=== PATIENT | female | born 1995 | race Hispanic/Latino ===

== ENCOUNTER → 2023-04-16 14:45 | Outpatient (CLI) | payer OTHER, SELFPAY ==
[2023-04-16 15:27] LABS: Add Manual Diff / Slide Review NO; Basophils Absolute Auto 0 /uL (0-100); Basophils Percent Auto 0.2 % (0-2); Eosinophils Absolute Auto 100 /uL (0-450); Eosinophils Percent Auto 0.6 % (2-4); Hematocrit 37.3 % (36-46); Hemoglobin 12.8 g/dL (12.0-16.0); Lymphocytes Absolute Auto 1900 /uL (1100-4500); Mean Corpuscular HGB Conc 34.2 % (30-36); Mean Corpuscular Hemoglobin 30.7 PG (26-34); Monocytes Absolute Auto 500 /uL (0-900); Monocytes Percent Auto 5.1 % (3-14); Neutrophils Absolute Auto 7400 /uL (1500-7000); Neutrophils Percent Auto 75.1 % (50-75); Platelet Count 315 X10^3/uL (150-400); Red Blood Cell Count 4.15 X10^6/uL (4.0-5.2); Red Cell Distribution Width 13.7 % (11.6-14.8); White Blood Cell Count 9.8 X10^3/uL (4.5-11.0)
[2023-04-17 07:44] LABS: RPR Screen Non Reactive (Non Reactive)
[2023-04-17 12:49] LABS: Varicella IgG Antibody 250 index (Immune >165)
[2023-04-17 17:33] LABS: HIV 1 & 2 Ab/Ag 4th Gen Combo NEGATIVE (NEGATIVE); Hep C Virus Ab w/Reflex Quant NEGATIVE s/c (NEGATIVE); Hepatitis B Surface Antigen NEGATIVE s/c (NEGATIVE); Rubella Antibody IgG 7.6 IU/mL (>15)
[2023-04-19 13:43] LABS: AFP, Serum 56.6 ng/mL (.); Estriol, Free 1.57 ng/mL (.); Inhibin A, Dimeric 192.34 pg/mL (.); Maternal Ethnicity Other (.); Maternal Weight 156 lbs (.); Number of Fetuses No (.); OSBR Risk 1 IN 2270 (.); Results Report (.); Test Results *Screen Negative* (.); hCG, MoM 0.99 (.); hCG, Serum 35436 mIU/mL (.)
== END ==
PROVIDERS: Specialist; Referring Provider Obstetrics & Gynecology; Visit Provider Obstetrics & Gynecology
DX: Z34.01 Encounter for supervision of normal first pregnancy, first trimester (principal); Z34.02 Encounter for supervision of normal first pregnancy, second trimester; Z3A.16 16 weeks gestation of pregnancy
CPT/HCPCS: 36415; 80055; 82105; 82677; 84702; 86336; 86787; 86803; 86850; 86900; 86901; 87086; 87389

== ENCOUNTER → 2023-05-07 15:12 | Outpatient (CLI) | payer OTHER, SELFPAY ==
--- NOTE | 2023-05-07 15:13 | DI.US.S_ITS ---
PROCEDURE: US OB >= 14 WEEKS FETUS INDICATIONS: 20 Week Anatomy Scan OUTSIDE/PRIOR DATING DATA: Last menstrual period (LMP): 12/20/2022. LMP-based estimated date of delivery (EVAN): 09/26/2023. First dating scan (date and location): 03/12/2023. Estimated date of delivery (EVAN) from first dating scan: 09/22/2023. The calculations are made using the working EVAN of 09/26/2023. TECHNIQUE: Real-time scanning was performed of the fetus, with image documentation and biometric measurements. Endovaginal scanning: Not performed COMPARISON: [facility], , OB >= 14 WEEKS FETUS, 03/12/2023, 15:04. FINDINGS: General: A single living intrauterine gestation is present. Presentation: Vertex. Placenta: Placental position is anterior , without previa. Amniotic fluid index: 13 cm, normal range is 5-24 cm. Single deepest vertical pocket is 3.6 cm. heart rate: 162 beats per minute. Maternal cervical canal: 3.7 cm long. Normal lower limit is 2.5 cm. biometrics: Biparietal diameter: 4.5 cm, 19 weeks 4 days Head circumference: 17.6 cm, 20 weeks 1 day Abdominal circumference: 15.1 cm, 20 weeks 3 days Femur length: 3.2 cm, 19 weeks 6 days Clinically estimated gestational age: 19 weeks 5 days Composite gestational age from present scan: 20 weeks 0 days Estimated weight and percentile: 331 g, 67th percentile Anatomic survey: Neuro: Ventricles are non-dilated at less than 10 mm. Cisterna magna is normal at 3-11 mm. Cerebellum is normal in size and morphology. Nuchal skin fold: Normal at less than 6 mm between 14-21 weeks gestational age. Face: Nose and lips, facial profile are normal. Spine: No evidence for spina bifida. Heart: 4-chambered heart is present, with normal ventricular outflow tracts. Diaphragm: Diaphragm is intact. Stomach: Left-sided stomach is present. Kidneys: No hydronephrosis. Normal is less than 5 mm in 2nd trimester, less than 7 mm in 3rd trimester. Cord: 3-vessel cord has orthotopic insertion. Bladder: Normal in size. Extremities: All 4 extremities identified. IMPRESSION: 1. Living 2nd trimester intrauterine with no sonographic evidence of complications. Current ultrasound age correlates with clinical age based on LMP. 2. Normal 2nd trimester anatomy study. We strive to produce accurate, complete, and clear reports of imaging services. To assist us in improving patient care, this report was composed using standard report templates and voice recognition software. Therefore, it may contain abnormal punctuation, insertions and/or omissions. Occasional wrong-word or sound-alike substitutions may occur. Though we review the report and make efforts to correct it, we do recommend that the report be read carefully in proper context to recognize any text inaccuracies. Dictated by: Vikash Obando M.D. on 05/07/2023 at 17:07 Approved by: Vikash Obando M.D. on 05/07/2023 at 17:10
== END ==
PROVIDERS: Referring Provider Obstetrics & Gynecology; Visit Provider Obstetrics & Gynecology
DX: Z34.02 Encounter for supervision of normal first pregnancy, second trimester (principal); Z3A.20 20 weeks gestation of pregnancy
CPT/HCPCS: 76811

== ENCOUNTER → 2023-06-19 11:23 | Outpatient (CLI) | payer OTHER, SELFPAY ==
[2023-06-19 12:30] LABS: Hematocrit 37.3 % (36-46); Hemoglobin 12.7 g/dL (12.0-16.0)
[2023-06-19 12:58] LABS: GTT (PREG) 1 Hour PP 50gm Dose 175 mg/dL (76-139)
== END ==
LOC: LAB 11:24
PROVIDERS: Referring Provider Specialist; Visit Provider Specialist
DX: Z34.02 Encounter for supervision of normal first pregnancy, second trimester (principal); Z3A.26 26 weeks gestation of pregnancy
CPT/HCPCS: 36415; 82950; 85014; 85018

== ENCOUNTER → 2023-06-28 12:01 | Outpatient (CLI) | payer OTHER, SELFPAY ==
[2023-06-28 13:25] LABS: Glucose Fasting Gestational 81 mg/dL (76-95)
[2023-06-28 14:15] LABS: Glucose 1 Hour Gest 175 mg/dL (76-180)
[2023-06-28 15:39] LABS: Glucose 2 Hour Gest 131 mg/dL (76-155)
[2023-06-28 19:15] LABS: Glucose Tol Interp,Gestational INTERPRETATION
[2023-06-28 19:26] LABS: Glucose 3 Hour Gest 100 mg/dL (76-140)
== END ==
PROVIDERS: PCP Obstetrics & Gynecology; Referring Provider Obstetrics & Gynecology; Visit Provider Obstetrics & Gynecology
DX: Z34.92 Encounter for supervision of normal pregnancy, unspecified, second trimester (principal); Z3A.23 23 weeks gestation of pregnancy
CPT/HCPCS: 82951; 82952

== ENCOUNTER → 2023-09-03 14:06 | Outpatient (CLI) | payer OTHER, SELFPAY ==
[2023-09-04 20:29] LABS: Strep Grp B PCR NEG for Grp B Strep
== END ==
PROVIDERS: PCP Obstetrics & Gynecology; Visit Provider Specialist
DX: Z34.03 Encounter for supervision of normal first pregnancy, third trimester (principal); Z3A.36 36 weeks gestation of pregnancy
CPT/HCPCS: 87653

== ENCOUNTER 2023-09-24 22:16 | Observation (INO) | payer OTHER, SELFPAY | END 2023-09-24 23:00 | disposition home or self-care (01) | LOC: LABOR 22:17 | PROVIDERS: Admitting Provider Obstetrics & Gynecology; PCP Obstetrics & Gynecology; Referring Provider Obstetrics & Gynecology; Visit Provider Obstetrics & Gynecology | DX: O47.1 False labor at or after 37 completed weeks of gestation (principal); O48.0 Post-term pregnancy; Z3A.40 40 weeks gestation of pregnancy | CPT/HCPCS: 59025; G0378; G0379 ==

== ENCOUNTER 2023-09-25 21:23 | Outpatient (CLI) | payer OTHER, SELFPAY ==
[2023-09-25] MEDS: MORPHINE 4 MG/ML INJ 5 MG IM (22:47)
[2023-09-25] MEDS: hydrOXYzine 50 MG/ML INJ 25 MG IM (22:47)
== END 2023-09-25 22:54 | disposition home or self-care (01) ==
LOC: OB 09-27 09:30
PROVIDERS: PCP Obstetrics & Gynecology; Referring Provider Obstetrics & Gynecology; Visit Provider Obstetrics & Gynecology
DX: O47.1 False labor at or after 37 completed weeks of gestation (principal); O48.0 Post-term pregnancy; Z3A.40 40 weeks gestation of pregnancy
CPT/HCPCS: 59025; 96372; G0378; G0379; J2270; J3410

== ENCOUNTER 2023-09-26 05:23 | Inpatient (IN) | payer OTHER, SELFPAY ==
--- NOTE | 2023-09-26 06:48 | DI.US.S_ITS ---
PROCEDURE: US OB LIMITED INDICATIONS: Large for gestational; Need current EFW. Thanks. OUTSIDE/PRIOR DATING DATA: Last menstrual period (LMP): 12/20/2022. LMP-based estimated date of delivery (EVAN): 09/26/2023. First dating scan (date and location): 03/12/2023. Estimated date of delivery (EVAN) from first dating scan: 09/22/2023. TECHNIQUE: Real-time scanning was performed of the fetus, with image documentation and biometric measurements. COMPARISON: [facility], OB <= 14 WEEKS FETUS, 09/03/2023, 14:28. [facility] OB >= 14 WEEKS FETUS, 07/02/2023, 15:23. [facility] OB >= 14 WEEKS FETUS, 05/07/2023, 15:26. [facility] OB >= 14 WEEKS FETUS, 03/12/2023, 15:04. FINDINGS: General: A single live intrauterine gestation is present. Presentation: Cephalic, spine to the maternal right. Placenta: Placental position is anterior , without previa. Amniotic fluid index: 8.5 cm, normal range is 5-24 cm. Single deepest vertical pocket is 3.5 cm. heart rate: 132 beats per minute. Maternal cervical canal: 3.7 cm long. Normal lower limit is 2.5 cm. biometrics: Biparietal diameter: 9.7 cm equals 39 weeks 4 days Head circumference: 34.2 cm equals 39 weeks 4 days Abdominal circumference: 35.9 cm equals 39 weeks 6 days Femur length: 8 cm equals 40 weeks 6 days Clinically estimated gestational age: 40 weeks 0 days Composite gestational age from present scan: 40 weeks 0 days Estimated weight and percentile: 3949 g, 76th percentile Other: Not applicable. IMPRESSION: The estimated weight based upon these images is 3949 g, 76 percentile. Note: Concordant preliminary findings given by the credit consultant upon the completion of the examination to Dr. Evans. We strive to produce accurate, complete, and clear reports of imaging services. To assist us in improving patient care, this report was composed using standard report templates and voice recognition software. Therefore, it may contain abnormal punctuation, insertions and/or omissions. Occasional wrong-word or sound-alike substitutions may occur. Though we review the report and make efforts to correct it, we do recommend that the report be read carefully in proper context to recognize any text inaccuracies. Dictated by: Fitz Tay M.D. on 09/26/2023 at 10:41 Approved by: Fitz Tay M.D. on 09/26/2023 at 10:44
[2023-09-26 07:10] VITALS: BP 122/70
[2023-09-26 07:11] LABS: Add Manual Diff / Slide Review NO; Basophils Absolute Auto 100 /uL (0-100); Basophils Percent Auto 0.5 % (0-2); Eosinophils Absolute Auto 0 /uL (0-450); Hematocrit 37.2 % (36-46); Hemoglobin 12.5 g/dL (12.0-16.0); Lymphocytes Absolute Auto 1200 /uL (1100-4500); Lymphocytes Percent Auto 6.4 % (25-40); Mean Corpuscular HGB Conc 33.5 % (30-36); Mean Corpuscular Hemoglobin 29.5 PG (26-34); Mean Corpuscular Volume 87.9 fL (80-100); Monocytes Absolute Auto 500 /uL (0-900); Monocytes Percent Auto 2.5 % (3-14); Neutrophils Absolute Auto 17200 /uL (1500-7000); Neutrophils Percent Auto 90.6 % (50-75); Platelet Count 292 X10^3/uL (150-400); Red Blood Cell Count 4.22 X10^6/uL (4.0-5.2); Red Cell Distribution Width 14.5 % (11.6-14.8)
[2023-09-26] MEDS: LACTATED RINGERS 1,000 ML 100 ML IV ×3 (07:18→16:30)
--- NOTE | 2023-09-26 10:27 | PM.AN.REGBLK ---
Regional Block Pre-procedure PMH/ROS narrative: 28 yo at 40 week GA in term labor requesting labor epidural for analgesia. See chart for details. PSH/Anesthesia history narrative: no anes. comp. Exam narrative: WNL ASA Class: II Labs: Hct 37.2 % (36-46) 09/26/23 07:00 Plt Count 292 X10^3/uL (150-400) 09/26/23 07:00 Medications: Current Medications Generic Name Dose Route Start Last Admin Trade Name Freq PRN Reason Stop Dose Admin Calcium Carbonate 1,000 mg 09/26/23 06:47 Calcium Carbonate 500 Mg Tab PO Q4HR PRN Dyspepsia Carboprost Tromethamine 250 mcg 09/26/23 06:43 Carboprost 250 Mcg/Ml Ampul IM Q90M PRN Bleeding Fentanyl 50 mcg 09/26/23 06:47 Fentanyl 100 Mcg/2 Ml Inj IV Q1H PRN Pain, Moderate (4-6) Oxytocin/Lactated Ringer's 30 unit in 500 mls @ 200 mls/hr 09/26/23 06:43 Oxytocin Premix IV CONT PRN Bleeding Protocol Tranexamic Acid 1,000 mg/ 100 mls @ 200 mls/hr 09/26/23 06:43 Sodium Chloride IV NOW PRN Bleeding Lactated Ringer's 1,000 mls @ 100 mls/hr 09/26/23 06:45 09/26/23 07:18 Lactated Ringers IV 100 mls/hr CONT ANNMARIE Administration Sodium Chloride 1,000 mls @ 100 mls/hr 09/26/23 10:30 Normal Saline 0.9% IV 09/27/23 10:25 CONT ANNMARIE Lidocaine HCl 20 ml 09/26/23 06:43 Lidocaine 1% 20 Ml INJ INTRA-OP PRN Post Delivery Methylergonovine Maleate 0.2 mg 09/26/23 06:43 Methylergonovine 0.2 Mg Tablet PO Q6HR PRN Heavy Bleeding Methylergonovine Maleate 0.2 mg 09/26/23 06:43 Methylergonovine 0.2 Mg/Ml Vial IM NOW PRN Bleeding Misoprostol 800 mcg 09/26/23 06:43 Misoprostol 200 Mcg Tablet IA NOW PRN Bleeding Misoprostol 400 mcg 09/26/23 06:43 Misoprostol 200 Mcg Tablet SL NOW PRN Bleeding Nalbuphine HCl 5 mg 09/26/23 10:23 Nalbuphine 20 Mg/Ml Ampul IV Q6H PRN Pruritus Naloxone HCl 0.2 mg 09/26/23 06:43 Naloxone 0.4 Mg/Ml Vial IV Q2MIN PRN Opiate Reversal Naloxone HCl 0.4 mg 09/26/23 10:23 Naloxone 0.4 Mg/Ml Vial IV Q2MIN PRN Opiate Reversal Naloxone HCl 0.1 mg 09/26/23 10:23 Naloxone 0.4 Mg/Ml Vial IV 09/26/23 10:24 NOW ONE Naloxone HCl 0.1 mg 09/26/23 10:23 Naloxone 0.4 Mg/Ml Vial IV 09/26/23 10:24 NOW ONE Ondansetron HCl 4 mg 09/26/23 06:47 Ondansetron 4 Mg/2 Ml Inj IV Q4HR PRN Nausea And Vomiting Ondansetron HCl 4 mg 09/26/23 13:00 Ondansetron 4 Mg/2 Ml Inj IV 09/26/23 17:01 Q4HR ANNMARIE Oxytocin 10 unit 09/26/23 06:43 Oxytocin 10 Unit/Ml Vial IM NOW PRN Bleeding Sodium Chloride 10 ml 09/26/23 09:00 Sodium Chloride 0.9% Flush IV BID ANNMARIE Sodium Chloride 10 ml 09/26/23 06:43 Sodium Chloride 0.9% Flush IV PRN PRN Flush Allergies: Allergies Allergy/AdvReac Type Severity Reaction Status Date / Time No Known Drug Allergies Allergy Unverified 09/24/23 11:09 Procedure Insertion date: 09/26/23 Insertion time: 08:45 Prep/Local: 1% lidocaine (chloroprep) Interspace: L3-4 Patient position: lateral (sitting) Needle: 18 gauge Yefri Loss of resistance with: saline FREDY at (cm): 7 Catheter placed at SKIN (cm): 12 Catheter in SPACE (cm): 5 Sensory level: unclear whether clear fluid was CSF or saline. Catheter passed EZ, no CSF. Insertion: Yes CSF, No Blood, Yes Paresthesia with insertion, No Paresthesia with injection and No Test dose reaction Initial Medications TEST DOSE time: 08:48 BOLUS DOSE time: 10:31 BOLUS DOSE (mL): 10 BOLUS DOSE med: 0.125% bupivacaine with fentanyl 10 mcg/mL Infusion Initial rate (mL/hr): 10 Subsequent interventions: 1725 c/o 10/10 pain. !0 ml bolus given, rate turned up to 12 ml/hr. Pt c/o pain more on right than keft. Positioned right side down Post-procedure Anesthesia date START: 09/26/23 Anesthesia time START: 07:55 Anesthesia date END: 09/27/23 Anesthesia time END: 03:16 Post-procedure Anesthesia Assessment: Yes CV function: HR/BP stable, Yes Resp function: RR/sat/airway adequate, Yes Post-op hydration adequate, Yes Pain control adequate, Yes Nausea & vomiting absent, Yes Temperature > 36 C, Yes Mental status appropriate and No Anesthesia complications
--- NOTE | 2023-09-26 10:32 | P.HPOB_ITS ---
OB HPI Date/Time Date of admission: 09/26/23 Date Patient Seen: 09/26/23 Time Patient Seen: 10:32 History of Present Condition Chief complaint: IUP, 40+0 wks, early labor, LGA, GBS NEG : 1 Para: 0 Estimated Date of Delivery: 09/26/23 Estimated Gestational Age (weeks): 40 Narrative: Ramya Marquez is a 28 year old primigravida admitted on her due date in early labor. course has been notable for an abnormal 1 hour GDM screen but her 3 hour GTT was normal in all determinations. Her most recent ultrasound showed the to be at the 88th percentile at 36+ 5 weeks gestational age. Patient's dating is solid and she has had appropriate milestones throughout. GBS is negative. History of Present care: good care Dating criteria: LMP confirmed by 1st trimester US Ultrasounds: normal 1st trimester US and normal mid trimester US Obstetrical complications: none and other (Large for gestational age infant) Preadmission Labs Blood type: O (+) positive -: Antibody screen: negative, GBS status: negative, HBsAG: negative, HIV: negative and RPR/VDLR: negative -: Chlamydia screen: not detected and Gonorrhea screen: not detected -: Rubella: not immune and Varicella: immune HCT: 37.2 HCAB: negative PAP: Normal Quad screen: Normal Cell-free DNA: Not performed 1 hr GTT: 175 3 hr GTT: 1 hr (175), 2 hr (131) and 3 hr (100) Fasting blood glucose: 81 Prior (ies) History: Primigravida Evaluation Evaluation Baseline heart rate: 155 Variability: Average (6-10) monitor accelerations: Present Monitor Decelerations: Episodic Contraction Frequency (minutes): 4 Uterine Contraction Intensity: Moderate Dilation (cm): 6 Effacement (%): 100 Dilation: >/=5 cm Effacement: >/=80% station: -2 Position of cervix: mid Consistency: soft Luna score: 10 Non-invasive Membranes Rupture Test: positive Comments: SROM, 0910, Moderate-thick meconium PFSH Surgical History (Updated 03/27/23 @ 19:36 by Arielle Fischer) Anesthesia Hx of cholecystectomy (~2021) Family History (Updated 03/02/23 @ 08:07 by Felisa Sarabia RN) Grandmother Breast cancer Social History marital status: unmarried,single number of children: 0 lives independently: Yes caregiver/support person: Yes housing[place] pets and animals: No education level: high school occupational status: employed (active duty ordinance handler) current occupational exposures/hazards: No (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 ) special nadiya needs: No travel history: recent (domestic only) seatbelt use: always water heater temp set < 120 deg: Yes working smoke detector in home: Yes fire extinguisher in home: Yes carbon monox detector in home: Yes firearms in home: No do you feel safe at home: Yes Smoking Status: Former smoker (Quit age 27) second hand exposure: No alcohol intake: former (occasionally when not ) substance use type: does not use during the past year weight has: decreased > 10 lbs (deployment related) well-balanced diet: about half the time daily servings fruits/ve-4 caffeine: No (not while ) Type(s) of exercise: walking duration: 15-30 minutes/day Meds Home Medications and Allergies Home Medications Medication Instructions Recorded Confirmed Type vit no.95-ferrous 1 tab PO DAILY 03/02/23 09/26/23 History fumarate 28 mg-folic acid 800 mcg tablet ( Multivitamins) breast pump 09/26/23 09/26/23 History Allergies Allergy/AdvReac Type Severity Reaction Status Date / Time No Known Drug Allergies Allergy Unverified 09/24/23 11:09 Review of Systems Review of Systems Narrative: Problem-specific ROS positives included in HPI OB Exam Vital signs Blood Pressure: 133/79 Pulse Rate: 97 Temperature: 98.8 F HENMT Head: normal to inspection, atraumatic and abrasion Eyes General: appearance normal, both eyes and all related structures Resp Effort & Inspection: normal respiratory effort and able to speak in complete sentences Auscultation: clear to auscultation bilaterally Cardio Rate: regular rate Rhythm: regular rhythm Heart Sounds: S1 normal, S2 normal and no murmurs GI Inspection: normal to inspection (Gravid) Palpation: Yes soft and Yes no hepatosplenomegaly External Female Exam: Yes other (No significant bleeding noted) Uterus Location (Fundal Height): 40 Presentation: vertex Estimated Weight (lbs): 9 Amniotic Fluid: meconium (Moderate-Thick) Objective Labs 09/26/23 07:00 Labs: Laboratory Results - last 24 hr 09/26/23 07:00 WBC 19.0 H RBC 4.22 Hgb 12.5 Hct 37.2 MCV 87.9 MCH 29.5 MCHC 33.5 RDW 14.5 Plt Count 292 Neut % (Auto) 90.6 H Lymph % (Auto) 6.4 L [place] % (Auto) 2.5 L Eos % (Auto) 0.0 L Baso % (Auto) 0.5 Neut # (Auto) 08261 H Lymph # (Auto) 1200 [place] # (Auto) 500 Eos # (Auto) 0 Baso # (Auto) 100 Blood Type O Positive Antibody Screen Negative Assessment and Plan Assessment and Plan Assessment and Plan narrative: ASSESSMENT 1. Intrauterine , 40+ 0 weeks gestational age in spontaneous labor 2. Spontaneous rupture membranes with moderate thick meconium noted 3. Large for gestational age infant 4. GBS negative status PLAN 1. Admit for labor and delivery 2. See admission orders 3. Estimated weight by ultrasound 4. Close observation for possible CPD or shoulder dystocia
[2023-09-26 10:49] VITALS: BP 133/79; PULSE 97; TEMP 37.1
[2023-09-26] MEDS: FENT 2MCG/ML BUPIV 0.125% EPI 200 MCG/100 ML PLAST..BAG 6 MCG EPIDURAL (16:08)
--- NOTE | 2023-09-26 18:16 | PM.OBPNLAB ---
Date/Time Date Patient Seen: 09/26/23 Time Patient Seen: 18:16 Pain Control Pain control: tolerating well and epidural Pelvic Exam Dilation (cm): 9 Effacement (%): 100 station: 0 (0-+1) Amniotic membrane status: Bulging (AROM, moderate meconimum) Contractions Contractions on admission: irregular Monitor mode: External Pitocin rate (mU/min): 6 Contraction frequency (min): 3 Contraction duration (min): 1 Contraction pattern: Regular Contraction phase: Resting Contraction intensity: Moderate Status status: Category l Heart Rate Baseline: 155 Monitor Accelerations: Present Monitor Decelerations: Absent Monitor Variability: Moderate Assessment and Plan Assessment: active labor Plan: continuous present management Comments: Position indeterminate.
--- NOTE | 2023-09-27 00:33 | P.PNOB_ITS ---
Date/Time Date Patient Seen: 09/27/23 Time Patient Seen: 00:33 Pain Control Pain control: tolerating well and epidural (Removed ) Pelvic Exam Dilation (cm): 8 Effacement (%): 100 station: 0 (0-+1) Amniotic membrane status: Ruptured (AROM, moderate meconimum) Contractions Contractions on admission: irregular Monitor mode: External Pitocin rate (mU/min): 0 Contraction frequency (min): 3 Contraction pattern: Regular Contraction phase: Resting Contraction intensity: Strong/Firm Status status: Category l Heart Rate Baseline: 155 Monitor Accelerations: Present Monitor Decelerations: Early, Episodic and Variable Monitor Variability: Minimal (Minimal to moderate) Assessment and Plan Assessment: other (Secondary arrest of descent and dilatation due to cephalopelvic disproportion) Plan: Comments: Patient's cervical examination has not changed and the vertex is not advanced in over 5-1/2 hours despite Pitocin augmentation with adequate contractions, effective epidural anesthesia, and multiple patient position changes. In addition caput molding have increased along with cervical edema at 8 cm dilated and the vertex not advancing beyond 0 station. After discussion with the patient and her , will proceed to primary section by low tra nsverse cervical incision with an indication of secondary arrest of descent and dilatation due to cephalopelvic disproportion. Operating crew summoned and preop orders entered.
--- NOTE | 2023-09-27 00:40 | PM.PREOP ---
Pre-operative Note COVID-19 COVID-19 status: Not tested Interval Note History & Physical reviewed/Exam performed by Physician: Yes Changes to H&P: No
[2023-09-27] MEDS: AZITHROMYCIN 500 MG in DEXTROSE 5% IN WATER 250 ML 250 MG IV (00:57)
[2023-09-27] MEDS: CITRIC ACID/SODIUM CITRATE 15 ML SOLUTION 30 ML PO (00:58)
[2023-09-27] MEDS: CEFAZOLIN 2 GM/100 ML PREMIX 100 ML IV (01:37)
--- NOTE | 2023-09-27 02:11 | SUR.OPER ---
Supine on Padded OR bed, head on pillow, safety belt at thigh, arms secured on padded arm boards at <90 degrees abduction. Bump under right buttock. Legs uncrossed with pillow under knees, gel pad to heels, tape over blanket to lower legs.
[2023-09-27] MEDS: LACTATED RINGERS 1,000 ML 999 ML IV (02:37)
[2023-09-27 03:14] VITALS: BP 116/73; PULSE 90; RESP 16; TEMP 37.5; O2SAT 98
[2023-09-27 03:19] VITALS: BP 97/58; PULSE 100; RESP 16; O2SAT 98
[2023-09-27 03:24] VITALS: BP 103/41; PULSE 78; RESP 16; O2SAT 98
--- NOTE | 2023-09-27 03:24 | PM.OBCS.1 ---
Operative Date/Time/Diagnoses Date of procedure: 09/27/23 Time of procedure: 01:45 Pre-op diagnosis: Secondary arrest of descent and dilatation and labor due to cephalopelvic disproportion Large for gestational age Post-op diagnosis: same Procedure & Clinicians Procedure: Primary section (low transverse cervical) Same procedure as scheduled: Yes Indications: Ramya is a 28-year-old primigravida at 40+ 0 weeks gestational age admitted in spontaneous labor who has failed to progress beyond 8 cm dilation, 0 station for 5.5 hours despite Pitocin augmentation with adequate contractions, continuous lumbar epidural anesthesia, and multiple position changes in an attempt to facilitate vaginal . Unfortunately the patient has failed to progress and her infant is known to be LGA therefore after discussion patient and her we are moving forward with primary section due to secondary arrest of descent and dilatation due to cephalopelvic disproportion Surgeon: Topher Evans Click Yes if Unassisted: Yes Reason for Devops Developer: Devops Developer required for the safe, effective, and timely completion of this surgery. Anesthesia Type: Spinal Operative Notes Findings: Viable male with Apgars of / , weight g (lbs oz) delivered from occiput transverse position. Moderate to thick meconium noted. Marked cranial molding and caput formation. Normal gravid anatomy. Closure Type: primary Specimen(s): cord blood Intraoperative meds administered: Acetaminophen and Ketorolac Applied: Catheter Estimated Blood Loss (mL): 900 Blood products transfused: none Procedure in detail: With her informed written consent, the patient was taken to the operating room and placed in the supine position for a primary section procedure, for the indication(s) above. The abdomen was prepped and draped in the usual manner for section and a pre-surgical timeout was taken per [facility] OR protocol. Once effective anesthesia was confirmed, a 15 cm transverse Pfannenstiel incision was made in the skin and taken down through the subcutaneous tissues to the deep fascia. The deep fascia was incised transversely, the rectus abdominal eyes bluntly and sharply, and the peritoneal cavity entered without difficulty. The lower uterine segment was visualized and the position/presentation palpated. A transverse incision at or above the vesicouterine reflection was made with Metzenbaum scissors and transverse hysterotomy performed near the midline. Amniotomy revealed meconium-stained fluid. The incision was extended bilaterally with digital traction and the infant was delivered without difficulty from the vertex presentation. The infant was vigorous and cord clamping delayed for 60 seconds. The placenta was delivered intact using gentle cord traction and fundal massage.The uterine cavity was then cleared of any clot/debris first with a sloppy wet lap tape followed by a dry lap tape. Ring forceps were then applied to the angles and the midline of the incised ALEJANDRO. A primary closure of the uterus was then accomplished with #1 CCGS in a running interlocking stitch followed by a 2nd layer of #1 CCGS in a running interlocking imbricating stitch. No additional sutures were required to achieve complete hemostasis. Once pelvic hemostasis was assured, the bladder flap and anterior peritoneum were closed with a running 2-0 Vicryl suture and the fascia closed with #1 Vicryl in a running stitch initiated at both angles and tying separately near the midline. The subcutaneous tissues were reapproximated with 2-0 plain catgut suture using inverted interrupted stitches. The skin edges were then brought together with 4-0 Monocryl in a subcuticular closure and the incision was reinforced with 1 Steri-Strips. A KARL dressing was applied and the patient transferred to PACU for recovery and subsequent transfer to the Center for recuperation. Complications: none [place] Baby 1: Infant Gender: Male Presentation: vertex Position: Left Occiput Transverse Placental Delivery Description: Spontaneous Cord Vessel Description: 3 Vessels score (5 min): 9 weight: 9 lb 2.316 oz Post-operative Condition: stable Disposition: PACU Aftercare: routine postop
[2023-09-27] MEDS: KETOROLAC 30 MG/ML VIAL IV ×4 (05:35→23:44)
[2023-09-27] MEDS: DOCUSATE 100 MG CAPSULE PO (09:38)
[2023-09-27] MEDS: PRENATAL VIT,CALC/IRON/FOLIC 1 TABLET 1 TAB PO (09:38)
--- NOTE | 2023-09-27 10:19 | P.PNOB_ITS ---
Subjective - OB Subjective Patient comments: no complaints and pain well controlled [place] baby status: doing well and nursing well feeding status: exclusively breast feeding Narrative: Pt sitting upright in bed, bonding with Date Patient Seen: 09/27/23 Time Patient Seen: 09:15 Interval history: POD0 s/p 1LTCS for failure to progress in first stage, known LGA with suspected CPD Exam Vital Signs (past 8 hours): - 09/27/23 03:14 09/27/23 03:19 09/27/23 03:24 Temperature 99.5 F Pulse Rate 90 100 H 78 Respiratory Rate 16 16 16 Blood Pressure 116/73 97/58 L 103/41 L Pulse Oximetry 98 98 98 Oxygen Delivery Method Room Air Room Air Room Air Oxygen Delivery Method Room Air Narrative Exam Narrative: well appearing, NAD Const General: cooperative and comfortable Nutritional Appearance: obese Orientation: alert, awake and oriented x3 HENMT Head: normal to inspection Mouth: moist mucous membranes Chest Chest: normal inspection of the chest Resp Effort & Inspection: normal respiratory effort Cardio Pulses: normal peripheral pulses GI Inspection: obesity Other: appropriate postoperative tenderness, fundus 3 below U surgical dressing in place, c/d/i Other: deferred, renteria OUT Skin General: no rashes or lesions noted Neuro General: patient alert, patient awake and patient oriented x3 Extrem General: normal to inspection Other: +1 bilateral pedal edema Psych Appearance: grossly normal Objective Labs 09/26/23 07:00 Assessment & Plan Plan day: 0 plan OB: routine postop care Comments: 28yo POD0 s/p 1LTCS for failure to progress in first stage, known LGA infant with suspected CPD Postop s/p dexter pt has already ambulated independently per RN general diet, tolerating thus far however awaiting flatus pain currently well managed with minimal oral analgesia, continue abd binder PRN pt request/comfort , consult PRN PNL reviewed, as per admission documentation elevated 1h OGTT normal 3h OGTT however LGA > recommend 2h GTT maternal VSS/afebrile, mild asymptomatic tachycardia immediately postop that has since resolved, will follow AM labs incision care per Dr. Evans's preference (change POD1 > new aquacel prior to dc), c/d/i on exam this AM Dispo: pending clinical course, anticipate dc to home POD2-3 Time Spent With Patient Time: Total time spent is greater than 50% in coordination of care (as documented) at patient's floor/unit and/or counseling patient: Time with patient: 15-24 minutes
[2023-09-27] MEDS: ACETAMINOPHEN 325 MG TABLET 650 MG PO ×3 (11:26→23:45)
[2023-09-28 03:28] VITALS: BP 111/71; PULSE 84; RESP 17; TEMP 37.4
[2023-09-28] MEDS: SIMETHICONE 80 MG TABLET PO (04:33)
[2023-09-28] MEDS: IBUPROFEN 600 MG TABLET PO ×3 (05:36→18:43)
[2023-09-28] MEDS: ACETAMINOPHEN 325 MG TABLET 650 MG PO ×3 (05:37→18:43)
[2023-09-28 06:25] LABS: Add Manual Diff / Slide Review NO; Basophils Absolute Auto 0 /uL (0-100); Basophils Percent Auto 0.1 % (0-2); Eosinophils Absolute Auto 200 /uL (0-450); Eosinophils Percent Auto 1.2 % (2-4); Hemoglobin 8.6 g/dL (12.0-16.0); Lymphocytes Absolute Auto 2100 /uL (1100-4500); Lymphocytes Percent Auto 16.5 % (25-40); Mean Corpuscular HGB Conc 34.2 % (30-36); Mean Corpuscular Hemoglobin 29.9 PG (26-34); Mean Corpuscular Volume 87.3 fL (80-100); Monocytes Absolute Auto 800 /uL (0-900); Monocytes Percent Auto 6.2 % (3-14); Neutrophils Absolute Auto 9600 /uL (1500-7000); Platelet Count 213 X10^3/uL (150-400); Red Blood Cell Count 2.86 X10^6/uL (4.0-5.2); Red Cell Distribution Width 14.8 % (11.6-14.8); White Blood Cell Count 12.7 X10^3/uL (4.5-11.0)
[2023-09-28] MEDS: PRENATAL VIT,CALC/IRON/FOLIC 1 TABLET 1 TAB PO (09:32)
[2023-09-28] MEDS: DOCUSATE 100 MG CAPSULE PO ×2 (09:32→19:07)
[2023-09-28] MEDS: IRON SUCROSE 300 MG in SODIUM CHLORIDE 0.9% 250 ML 176.667 MG IV (09:32)
[2023-09-28 12:19] LABS: Hematocrit 26.5 % (36-46); Hemoglobin 8.8 g/dL (12.0-16.0)
--- NOTE | 2023-09-28 13:54 | PM.PN.1 ---
Subjective Subjective Interval history: Anesthesia follow up visit -- Patient asked if the reason she had a fairly high spinal block was because she is short. I explained that height can definitely be a factor, and that I had decreased her dose some, but that were she to have another SAB for , if she mentioned that she had a high block, they might be able to decrease the dose more to avoid this. She also said she was very glad I had not sedated her when she was c/o being SOB like they were telling you to do because she remembered her son being born. She thanked me also for restraining her hands when she was at the peak of her anxiety - That way I wasn't able to touch myself and make a problem. She felt much better when she could feel the high flow O2 by mask on her face. Finally, she asked about the epidural disconnection (which I said might have been from my not clicking it firmly. I said I will tug on them in the future to make sure it is tight) and just wanted to talk about how during labor when she had to be repositioned on one side, the up side would not be as pain free. I explained that gravity affects the spread of epidural analgesia and that this is unavoidable. She seemed pleased and satisfied with our conversation and she and her thanked me for my care. Exam Vital Signs (past 8 hours): Oxygen Delivery Method Room Air Objective Labs 09/28/23 12:05 Labs: Laboratory Results - last 24 hr 09/28/23 09/28/23 06:10 12:05 WBC 12.7 H RBC 2.86 L Hgb 8.6 L 8.8 L Hct 25.0 L 26.5 L MCV 87.3 MCH 29.9 MCHC 34.2 RDW 14.8 Plt Count 213 Neut % (Auto) 76.0 H Lymph % (Auto) 16.5 L [place] % (Auto) 6.2 Eos % (Auto) 1.2 L Baso % (Auto) 0.1 Neut # (Auto) 9600 H Lymph # (Auto) 2100 [place] # (Auto) 800 Eos # (Auto) 200 Baso # (Auto) 0 PFSH Surgical History (Updated 03/27/23 @ 19:36 by Arielle Fischer) Anesthesia Hx of cholecystectomy (~2021) Family History (Updated 03/02/23 @ 08:07 by Felisa Sarabia RN) Grandmother Breast cancer Social History marital status: unmarried,single number of children: 0 lives independently: Yes caregiver/support person: Yes [place] pets and animals: No education level: high school occupational status: employed (active duty ordinance handler) current occupational exposures/hazards: No (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 ) special nadiya needs: No travel history: recent (domestic only) seatbelt use: always water heater temp set < 120 deg: Yes working smoke detector in home: Yes fire extinguisher in home: Yes carbon monox detector in home: Yes firearms in home: No do you feel safe at home: Yes Smoking Status: Former smoker (Quit age 27) second hand exposure: No alcohol intake: former (occasionally when not ) substance use type: does not use during the past year weight has: decreased > 10 lbs (deployment related) well-balanced diet: about half the time daily servings fruits/ve-4 caffeine: No (not while ) Type(s) of exercise: walking duration: 15-30 minutes/day
--- NOTE | 2023-09-28 16:20 | P.PNOB_ITS ---
Subjective - OB Subjective Patient comments: no complaints, pain well controlled, incisional pain, tolerating diet and flatus present baby status: doing well [place] feeding status: exclusively breast feeding Narrative: Ramya continues to do well following her primary . She has not yet had a bowel movement but is passing gas. She is tolerating regular diet and her lochia flow is minimal. A.M. hemoglobin and hematocrit are slightly lower than would be expected from 900 cc EBL therefore will repeat hemoglobin and hematocrit later today to assure stability. Date Patient Seen: 09/28/23 Time Patient Seen: 07:40 Exam Vital Signs (past 8 hours): Oxygen Delivery Method Room Air Const General: cooperative and comfortable Nutritional Appearance: average body habitus Orientation: alert and oriented x3 HENMT Head: normal to inspection, atraumatic and abrasion Ears: hearing grossly normal bilaterally Face and sinus: face symmetric Eyes General: appearance normal, both eyes and all related structures Conjunctivae: conjunctivae normal Sclera: sclerae normal EOM: EOM intact bilaterally Neck Neck: normal visual inspection Resp Effort & Inspection: normal respiratory effort and able to speak in complete sentences Auscultation: clear to auscultation bilaterally Cardio Rate: regular rate Rhythm: regular rhythm Heart Sounds: S1 normal, S2 normal and no murmurs GI Inspection: normal to inspection and incision (Surgical dressing clean and dry) Palpation: soft, no hepatosplenomegaly and tender (Mild, diffuse postsurgical tenderness) External Female Exam: other (No significant bleeding noted) Extrem General: no calf tenderness Psych Appearance: grossly normal Mental Status: mental status grossly normal Speech and Movement: speech and movement normal Mood: congruent mood Affect: normal affect Attitude: cooperative Thought Process: normal Thought Content: normal Judgment: judgment good Objective Labs 09/28/23 12:05 Labs: Laboratory Results - last 24 hr 09/28/23 09/28/23 06:10 12:05 WBC 12.7 H RBC 2.86 L Hgb 8.6 L 8.8 L Hct 25.0 L 26.5 L MCV 87.3 MCH 29.9 MCHC 34.2 RDW 14.8 Plt Count 213 Neut % (Auto) 76.0 H Lymph % (Auto) 16.5 L Mckenzie % (Auto) 6.2 Eos % (Auto) 1.2 L Baso % (Auto) 0.1 Neut # (Auto) 9600 H Lymph # (Auto) 2100 [place] # (Auto) 800 Eos # (Auto) 200 Baso # (Auto) 0 Assessment & Plan Assessment and Plan (1) delivery w/o mention of indication, [facility]: Status: Acute (2) Anemia due to blood loss, acute: Status: Acute Plan day: 1 plan OB: routine postop care Comments: Will recheck hemoglobin and hematocrit at 12 noon today to assure stability and place abdominal binder. IV iron sucrose 300 mg Time Spent With Patient Time: Total time spent is greater than 50% in coordination of care (as documented) at patient's floor/unit and/or counseling patient: Time with patient: 15-24 minutes
[2023-09-28] MEDS: OXYCODONE IR 5 MG TABLET PO ×2 (19:04→23:12)
[2023-09-28] MEDS: MAGNESIUM HYDROXIDE 30 ML UDC PO (23:09)
[2023-09-29] MEDS: IBUPROFEN 600 MG TABLET PO ×2 (01:51→08:48)
[2023-09-29] MEDS: ACETAMINOPHEN 325 MG TABLET 650 MG PO ×2 (01:52→08:49)
[2023-09-29] MEDS: PRENATAL VIT,CALC/IRON/FOLIC 1 TABLET 1 TAB PO (08:47)
[2023-09-29] MEDS: DOCUSATE 100 MG CAPSULE PO (08:48)
--- NOTE | 2023-09-29 10:13 | PM.OBDS.1 ---
Discharge Providers Provider Date of admission: 09/26/23 05:23 Discharge Date: 09/29/23 Primary care physician: Halima Kelly MD Consults: 09/27/23 03:28 Consult to Corner Trimmer Operator Routine Comment: Discharge provider: Topher Evans MD Summary Hospital Course Date Patient Seen: 09/29/23 Time Patient Seen: 10:14 Diagnoses: Intrauterine gestation, 40+ 1 weeks, delivered by primary section Secondary arrest of descent and dilatation due to cephalopelvic disproportion macrosomia Anemia due to operative blood loss Hospital Course: Ramya was admitted in early spontaneous labor on the morning of 09/25/2023 and by the evening of 09/25/2023 had progressed to 8 cm dilation, complete effacement, and the vertex at a 0 station. Unfortunately despite adequate contraction activity with Pitocin augmentation, epidural providing good pain relief, and multiple position changes, the patient failed to advance the vertex or dilate the cervix over a period of nearly 5 hours. After discussion with the patient and her the decision was made to proceed to primary section early on morning of 09/26/2023. Details of the procedure well summarized on my operative note of that date. Following surgery the patient has done extremely well with prompt return of bowel and bladder function, she is ambulating independently, tolerating regular diet, and her pain is well controlled with oral pain medications. She received 300 mg of iron sucrose IV due to anemia following her delivery but her hemoglobin and hematocrit were stable on sequential determinations. She will be discharged at this time to home in an afebrile normotensive condition after counseling regarding precautionary symptoms, limitations of activity, medications, and plans for follow-up which will be in 1 week. Medications at discharge will include resumption of all preadmission medications as well as oxycodone 5 mg p.o. q.4 hours as needed pain, dispense 20 with no refills, and ibuprofen 600 mg p.o. q.6 hours as needed pain, dispense 30 with 2 refills. Peripartum Data Delivery Method: Section Laceration Description: None Episiotomy description: None Procedures: Continuous lumbar epidural anesthesia Primary section ( low transverse cervical ) complications: none [place] 1: Gender: Male Disposition of : home Discharge Diagnosis (1) delivery w/o mention of indication, [facility]: Status: Acute (2) Anemia due to blood loss, acute: Status: Acute Status at Discharge Cognitive/behavioral status at discharge: oriented Functional status at discharge: independent ambulation Overall status at discharge: patient is progressing back to baseline Time Spent with Patient Time attestation: Total time spent providing and/or coordinating discharge services: Objective Labs 09/28/23 12:05 Labs: Laboratory Results - last 24 hr 09/28/23 12:05 Hgb 8.8 L Hct 26.5 L Exam Vital Signs (past 8 hours): Oxygen Delivery Method Room Air Const General: cooperative and comfortable Nutritional Appearance: average body habitus Orientation: alert and oriented x3 HENMT Head: normal to inspection, atraumatic and abrasion Ears: hearing grossly normal bilaterally Face and sinus: face symmetric Eyes General: appearance normal, both eyes and all related structures Conjunctivae: conjunctivae normal Sclera: sclerae normal EOM: EOM intact bilaterally Neck Neck: normal visual inspection Resp Effort & Inspection: normal respiratory effort and able to speak in complete sentences Auscultation: clear to auscultation bilaterally Cardio Rate: regular rate Rhythm: regular rhythm Heart Sounds: S1 normal, S2 normal and no murmurs GI Inspection: normal to inspection and incision (Surgical dressing clean and dry, KARL replaced with AquaCel) Palpation: soft, no hepatosplenomegaly and tender (Mild, diffuse postsurgical tenderness) Auscultation: normal bowel sounds External Female Exam: other (No significant bleeding noted) Uterus Location (Fundal Height): 18 Extrem General: no calf tenderness Psych Appearance: grossly normal Mental Status: mental status grossly normal Speech and Movement: speech and movement normal Mood: congruent mood Affect: normal affect Attitude: cooperative Thought Process: normal Thought Content: normal Judgment: judgment good Discharge Plan Discharge Plan Patient Disposition: Home Provider Discharge Comment: Please review the written instructions you received when you were discharged from the hospital. Your follow-up appointment will be scheduled for 1 week after your and we look forward to seeing you then. If however in the meanwhile you have any questions, concerns, or other issues, please contact the office either by phone at [phone], or via the patient portal. Discharge orders & Medications Prescriptions: New ibuprofen 600 mg Tablet 600 mg PO Q6H Qty: 30 2RF oxycodone 5 mg Tablet 5 mg PO Q4H PRN (Reason: Pain, Moderate (4-6)) Qty: 20 0RF Continued PNV [id number] fumarate-FA [ Multivitamins] 28 mg iron- 800 mcg tablet 1 tab PO DAILY (DME) breast pump Device See Rx Instructions .ROUTE Rx Instructions: As directed Follow up/Referrals: Halima Kelly MD [Primary Care Provider] - (Incision check on 10/06/2023 @ 1530 6 wk post appt on11/10/2023 @ [address] Kelly) Topher Evans MD [Physician] - Discharge Health Status Multidrug resistant organism: No MDRO Diet/Activity/Treatments Diet: Diet as Tolerated Activity: As tolerated Other treatments: [id number] ibuprofen and/or Tylenol may be used for additional pain control. [id number] stool softeners and/or MiraLax may be used as needed for constipation. Skin/Wound/Dressing Care Report to your healthcare provider any signs of infection, such as:: chills, fever, increased pain and unusual drainage Dressing: Your dressing will be removed at your 1 week postop appointment Visit Report/Discharge Packet Instructions: DI for Vaginal After Section (), DI for and Nipple Soreness, DI for Prescription Opioid Use Discharge Data Primary Care Provider: Halima Kelly
== END 2023-09-29 12:00 | disposition home or self-care (01) | DRG 788 ==
PROVIDERS: Admitting Provider Obstetrics & Gynecology; PCP Obstetrics & Gynecology; Referring Provider Obstetrics & Gynecology; Visit Provider Obstetrics & Gynecology
PROC: 10D00Z1 Extraction of Products of Conception, Low, Open Approach (ICD-10-PCS; CPT 59514; principal; 2023-09-27 01:30)
DX: O66.2 Obstructed labor due to unusually large fetus (principal); O62.1 Secondary uterine inertia; Z3A.40 40 weeks gestation of pregnancy; Z37.0 Single live birth
CPT/HCPCS: 36415; 59050; 59510; 59514; 76815; 85014; 85018; 85025; 86850; 86900; 86901; G0379; J0690; J1756; J1885; J2250; J2274; J2405; J2590; J3010